=== PATIENT | male | born 1950 | race Two or more races ===

== ENCOUNTER 2023-10-14 17:59 | Emergency (ER) | payer BC, OTHER ==
[~2023-10-14] VITALS: Ht 167.6 cm; Wt 88.9 kg
[2023-10-14 18:57] VITALS: BP 123/70; PULSE 103; RESP 14; TEMP 98.9
[2023-10-14] MEDS ORDERED: ACE3T PO (21:42)
[2023-10-14] MEDS: ONDANSETRON ODT 4 MG TAB PO ONE (21:48)
[2023-10-14] MEDS: HYDROcodone-ACET 5/325MG TAB PO ONE (21:48)
[2023-10-14 21:55] VITALS: O2SAT 95
== END 2023-10-14 22:12 | disposition home or self-care (01) ==
LOC: ER 18:02
DX: S30.0XXA Contusion of lower back and pelvis, initial encounter (principal); E11.9 Type 2 diabetes mellitus without complications; E78.5 Hyperlipidemia, unspecified; I10 Essential (primary) hypertension; Z86.73 Personal history of transient ischemic attack (TIA), and cerebral infarction without residual deficits; W18.09XA Striking against other object with subsequent fall, initial encounter; Y93.89 Activity, other specified; Y92.89 Other specified places as the place of occurrence of the external cause; Y99.8 Other external cause status
CPT/HCPCS: 73502; 99283; Q0162

== ENCOUNTER 2025-02-14 13:40 | Inpatient (IN) | payer OTHER, MEDICAID ==
[~2025-02-14] VITALS: Ht 160 cm; Wt 91.0 kg
[~2025-02-14 13:40] MED LIST: ACE3T PO
--- NOTE | 2025-02-14 14:37 | ED.PDOC ---
HPI Comments 74 year old male presents to the ED with a chief complaint of chest pain onset 2 days. Patient [place] [employer] [facility] [place] when he began experiencing chest pain. Patient is a poor historian. PMHx CVA LT sided weakness. Denies shortness of breath, nausea, vomiting, diarrhea, headache, dizziness, fever, chills, cough, cold, congestion. No other symptoms or modifying factors present at this time. Chief Complaint: Chest Pain Time Seen by MD: 14:40 Primary Care Provider: UNKNOWN Reviewed Notes: Medications, Allergies Allergies: Coded Allergies: NO KNOWN ALLERGIES (Unverified , 10/14/23) Home Meds Active Scripts Acetaminophen W/ Codeine (Tylenol W/Cod #3) 1 Tab Tb, 1 TAB PO Q6HPRN, #10 TAB 0 Refills Prov:JALEN CASTELLANO 10/14/23 Information Source: Patient, Spouse Mode of Arrival: Wheelchair Severity: Moderate Duration: Since onset Prehospital treatment: None Onset: At Rest Cardiac Risk Factors: Hyperlipidemia, HTN, Diabetes PE Risk Factors: None History of: None Modifying Factors: Nothing Past Medical History PAST MEDICAL HISTORY: CVA, DM, High Lipids, HTN Surgical History: Denies all surgeries Family History Family History: Unknown Social History Smoker: Non-Smoker Alcohol: Denies ETOH Use Drugs: Denies Drug Use Lives In: Home Constitutional: denies: chills, diaphoresis, fatigue, fever, malaise, sweats, weakness, others EENTM: denies: blurred vision, double vision, ear bleeding, ear discharge, ear drainage, ear pain, ear ringing, eye pain, eye redness, hearing loss, mouth pain, mouth swelling, nasal discharge, nose bleeding, nose congestion, nose pain, photophobia, tearing, throat pain, throat swelling, voice changes, others Respiratory: denies: cough, hemoptysis, orthopnea, SOB at rest, shortness of breath, SOB with excertion, stridor, wheezing, others Cardiovascular: reports: chest pain; denies: dizzy spells, diaphoresis, Dyspnea on exertion, edema, irregular heart beat, left arm pain, lightheadedness, palpitations, PND, syncope, others Gastrointestinal: denies: abdomen distended, abdominal pain, blood streaked bowels, constipated, diarrhea, dysphagia, difficulty swallowing, hematemesis, melena, nausea, poor appetite, poor fluid intake, rectal bleeding, rectal pain, vomiting, others Genitourinary: denies: burning, dysuria, flank pain, frequency, hematuria, incontinence, penile discharge, penile sore, pain, testicle pain, testicle swelling, urgency, others Neurological: denies: dizziness, fainting, headache, left sided numbness, left sided weakness, numbness, paresthesia, pre-existing deficit, right sided numbness, right sided weakness, seizure, speech problems, tingling, tremors, weakness, others Musculoskeletal: denies: back pain, gout, joint pain, joint swelling, muscle pain, muscle stiffness, neck pain, others Integumetry: denies: bruises, change in color, change in hair/nails, dryness, laceration, lesions, lumps, rash, wounds, others Allergic/Immunocompromised: denies: Difficulty Healing, Frequent Infections, Hives, Itching, others Hematologic/Lymphatic: denies: anemia, blood clots, easy bleeding, easy bruising, swollen glands, others Endocrine: denies: excessive hunger, excessive sweating, excessive thirst, excessive urination, flushing, intolerance to cold, intolerance to heat, unexplained weight gain, unexplained weight loss, others Psychiatric: denies: anxiety, bipolar disorder, depression, hopeless, panic disorder, schizophrenia, sleepless, suicidal, others All Other Systems: Reviewed and Negative Physical Exam General Appearance: Normal HEENT: Normal ENT Inspection, Pharynx Normal, TMs Normal Neck: Full Range of Motion, Non-Tender, Normal, Normal Inspection Respiratory: Chest Non-Tender, Lungs Clear, No Accessory Muscle Use, No Respiratory Distress, Normal Breath Sounds Cardiovascular: No Edema, No JVD, No Murmur, No Gallop, Normal Peripheral Pulses, Regular Rate/Rhythm Breast Exam: Deferred Gastrointestinal: No Organomegaly, Non Tender, No Pulsatile Mass, Normal Bowel Sounds, Soft Genitalia: Deferred Pelvic: Deferred Rectal: Deferred Extremities: No calf tenderness, Normal capillary refill, Normal inspection, Normal range of motion, Non-tender, No pedal edema Musculoskeletal : Apperance: Normal Neurologic: Alert, 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 Was a procedure done?: No CP Differential Dx Differential Diagnosis: Hypoxia, MAT, CT Differential Diagnosis: HTN Essential, HTN Accelerated Differential Diagnosis: Gastritis, Myocardial Infarction X-Ray, Labs, Meds, VS Vital Signs Date Time Temp Pulse Resp B/P (MAP) Pulse Ox O2 Delivery O2 Flow Rate FiO2 02/14/25 16:46 79 02/14/25 15:51 88 18 94 Room Air 02/14/25 15:51 88 18 149/90 (109) 94 02/14/25 14:51 Room Air* 0 21 02/14/25 14:49 88 02/14/25 13:48 95 02/14/25 13:43 98.0 60 16 143/87 98 98.0 Lab Test 02/14/25 16:54 02/14/25 14:55 02/14/25 14:40 02/14/25 13:52 Range/Units Troponin I High Sensitivity 8 6 6 </=54 ng/L Urine Color Light-yellow Yellow Urine Clarity Clear Clear Urine pH 5.5 5.0-9.0 Urine Specific Julian 1.019 1.001-1.035 Urine Protein 1+ H Negative Urine Ketones Negative Negative Urine Blood Negative Negative /uL Urine Nitrite Negative Negative Urine Bilirubin Negative Negative Urine Urobilinogen Normal Negative mg/dL Urine Leukocyte Esterase Negative Negative /uL Urine RBC 1 0 - 3 /hpf Urine Microscopic WBC 1 0-3 /HPF Urine Squamous Epithelial Cells None seen <5 /hpf Urine Bacteria None seen None Seen /hpf Urine Glucose Normal Normal mg/dL White Blood Count 6.6 4.4-10.8 10^3/uL Red Blood Count 4.55 4.5-5.90 10^6/uL Hemoglobin 14.3 13.5-17.5 g/dL Hematocrit 41.2 41.0-53.0 % Mean Corpuscular Volume 90.7 80.0-100.0 fL Mean Corpuscular Hemoglobin 31.4 28.0-32.0 pg Mean Corpuscular Hemoglobin Concent 34.7 32.0-36.0 g/dL Red Cell Distribution Width 14.2 11.8-14.3 % Platelet Count 197 140-450 10^3/uL Mean Platelet Volume 9.3 6.9-10.8 fL Neutrophils (%) (Auto) 71.7 37.0-80.0 % Lymphocytes (%) (Auto) 16.5 10.0-50.0 % Monocytes (%) (Auto) 9.1 0.0-12.0 % Eosinophils (%) (Auto) 2.4 0.0-7.0 % Basophils (%) (Auto) 0.3 0.0-2.0 % Neutrophils # (Auto) 4.7 1.6-8.6 10 ^3/uL Lymphocytes # (Auto) 1.1 0.4-5.4 10 ^3/uL Monocytes # (Auto) 0.6 0-1.3 10 ^3/uL Eosinophils # (Auto) 0.2 0-0.8 10 ^3/uL Basophils # (Auto) 0 0-0.2 10 ^3/uL Nucleated Red Blood Cells 0.0 % Sodium Level 144 136-145 mmol/L Potassium Level 3.8 3.5-5.1 mmol/L Chloride Level 109 H 98-107 mmol/L Carbon Dioxide Level 19 L 20-31 mmol/L Anion Gap 16 H 5-15 Blood Urea Nitrogen 13 9-23 mg/dL Creatinine 1.36 H 0.700-1.30 mg/dL Glomerular Filtration Rate Calc 54 >90 mL/min BUN/Creatinine Ratio 9.6 L 10.0-20.0 Serum Glucose 74 74-106 mg/dL Calcium Level 9.2 8.7-10.4 mg/dL Time of 1ST Reevaluation: 15:10 Reevaluation 1ST: Unchanged Patient Education/Counseling: Diagnosis, Treatment, Prognosis Family Education/Counseling: Diagnosis, Treatment, Prognosis SEPSIS Sepsis Screen Date sepsis recognized/suspect: Feb 14, 2025 Time Sepsis recognized/suspect: 1343 Recent Procedure: No On Antibiotic Therapy: No Respiratory Rate >20: No Heart Rate >90: No Temp<36 C (96.8 F) or >38.3 C: No SBP <90 or MAP <65 mmHG: No New Acute Mental Status Change: No Is the patient on CPAP, BIPAP,: No Physician Orders Chest Portable (02/14/25 17:49) Head Without Contrast (02/14/25 17:49) Vital Signs Date Time Temp Pulse Resp B/P (MAP) Pulse Ox O2 Delivery O2 Flow Rate FiO2 02/14/25 16:46 79 02/14/25 15:51 88 18 94 Room Air 02/14/25 15:51 88 18 149/90 (109) 94 02/14/25 14:51 Room Air* 0 21 02/14/25 14:49 88 02/14/25 13:48 95 02/14/25 13:43 98.0 60 16 143/87 98 98.0 Laboratory Tests Test 02/14/25 13:52 White Blood Count 6.6 10^3/uL (4.4-10.8) Departure 1 Departure Time of Disposition: 18:31 Impression: Primary Impression: Acute metabolic encephalopathy Additional Impressions: Blindness CVA (cerebral vascular accident) Disposition: ADMITTED INPATIENT Admit to: Tele Condition: Serious Critical Care Note Critical Care Time?: Yes Critical care comment: Concern for CVA Authorized and Performed by: Rinku Case MD Total critical care time: Approximately 41 minutes Due to a high probability of clinically significant, life threatening deterioration, the patient required my highest level of preparedness to intervene emergently and I personally spent this critical care time directly and personally managing the patient. This critical care time included obtaining a history; examining the patient; pulse oximetry; ordering and review of studies; arranging urgent treatment with development of a management plan; evaluation of patient's response to treatment; frequent reassessment; and, discussions with other providers. This critical care time was performed to assess and manage the high probability of imminent, life-threatening deterioration that could result in multi-organ failure. It was exclusive of separately billable procedures and treating other patients and teaching time. Please see my other sections and the rest of the note for further information on patient assessment and treatment. Stability Stability form required: No Heart Score Heart Score: Heart Score Response (Comments) Value History Moderate Suspicious 1 EKG Repolarization Disturb 1 Age >65 2 Risk Factors >3 or Hx ASHD 2 Troponin 1-2 x's Normal limit 1 Total 7 I personally scribed for RINKU CASE MD ([email or web address]) on 02/14/25 at 14:37. Electronically submitted by Nay Jerry ([email or web address]). I personally scribed for RINKU CASE MD ([email or web address]) on 02/14/25 at 14:58. Electronically submitted by Nay Jerry ([email or web address]). RINKU CASE MD Feb 14, 2025 14:37
--- NOTE | 2025-02-14 14:39 | ECG ---
[facility] Test Date: 2025-02-14 Test Time: 13:48:23 Pat Name: PHIL JOHNSON Department: ED Room: 0202T Gender: M Process Chemist: : 1950 Requested By: JASMIN RENDON Order Number: [id number] Reading MD: Dejuan Watson Measurements Intervals [place] Rate: 95 P: -4 [place]: 208 QRS: -8 QRSD: 147 T: 18 QT: 384 QTc: 483 Interpretive Statements Sinus rhythm Right bundle branch block Electronically Signed On 02-18-2025 20:29:11 PDT by Dejuan Watson Please click the below link to view image of tracing.
--- NOTE | 2025-02-14 14:50 | ECG ---
[facility] Test Date: 2025-02-14 Test Time: 14:49:34 Pat Name: PHIL JOHNSON Department: ED Room: 0202T Gender: M Meat Cutter: GP : 1950 Requested By: JASMIN RENDON Order Number: [id number] Reading MD: Dejuan Watson Measurements Intervals [place] Rate: 88 P: 10 [place]: 240 QRS: -21 QRSD: 151 T: 16 QT: 398 QTc: 482 Interpretive Statements Sinus rhythm Prolonged [place] interval Right bundle branch block Baseline wander in lead(s) I,V4 Electronically Signed On 02-18-2025 20:29:21 PDT by Dejuan Watson Please click the below link to view image of tracing.
[2025-02-14 15:52] LABS: Urine Protein, UAD 1+ (Negative)
--- NOTE | 2025-02-14 16:48 | ECG ---
[facility] Test Date: 2025-02-14 Test Time: 16:46:49 Pat Name: PHIL JOHNSON Department: [facility] ED Patient ID: [id number] Room: 0202T Gender: M Documentation Billing Clerk: gp : 1950 Requested By: JASMIN RENDON Order Number: [id number] Reading MD: Dejuan Watson Measurements Intervals [place] Rate: 79 P: 29 [place]: 232 QRS: -1 QRSD: 157 T: 22 QT: 404 QTc: 464 Interpretive Statements Sinus rhythm Prolonged [place] interval Right bundle branch block Baseline wander in lead(s) III,V6 Electronically Signed On 02-18-2025 20:29:25 PDT by Dejuan Watson Please click the below link to view image of tracing.
[2025-02-14 18:07] LABS: Hematocrit 41.2 % (41.0-53.0); Hemoglobin 14.3 g/dL (13.5-17.5); Mean Corpuscular Hemoglobin 31.4 pg (28.0-32.0); Mean Corpuscular Volume 90.7 fL (80.0-100.0); Nucleated Red Blood Cells % 0.0 %
[2025-02-14 18:08] LABS: Potassium 3.8 mmol/L (3.5-5.1); Sodium 144 mmol/L (136-145)
[2025-02-14 18:09] LABS: Anion Gap 16 (5-15)
[2025-02-14 18:10] LABS: Calcium 9.2 mg/dL (8.7-10.4)
[2025-02-14 18:11] LABS: Carbon Dioxide 19 mmol/L (20-31); Chloride 109 mmol/L (98-107)
[2025-02-14 18:14] LABS: BUN/Creatinine Ratio 9.6 (10.0-20.0); Blood Urea Nitrogen 13 mg/dL (9-23); Glucose 74 mg/dL (74-106)
--- NOTE | 2025-02-14 18:17 | DVH ---
CLINICAL HISTORY: ams TECHNIQUE: Single view of the chest was obtained. COMPARISON: None FINDINGS: The heart size is borderline enlarged and the pulmonary vasculature appears normal. The lungs are olga ar. There has been right shoulder surgery. IMPRESSION: NO ACUTE CARDIOPULMONARY PROCESS.
--- NOTE | 2025-02-14 18:30 | DVH ---
EXAM: CT HEAD WITHOUT CONTRAST INDICATION: ams TECHNIQUE: CT of the head without intravenous contrast. Radiation Dose Information: CT Dose: CTDI volume is 56.79 mGy. Dose-length product is 908.71 mGy*cm The dose indicators for CT are the volume Computed Tomography (CT) Dose Index (CTDIvol) and the Dose Length Product (DLP), and are measured in units of mGy and mGy-cm, respectively. These indicators are not patient dose, but values generated from the CT scanner acquisition factors. The report includes radiation exposure data for exposures received during this examination. COMPARISON: None FINDINGS: There is no evidence of acute intracranial hemorrhage, extra-axial collection, mass effect, midline s hift, herniation or hydrocephalus. The ventricles, sulci and cisterns are age appropriate. The larkin-white differentiation is intact apart from remote infarcts in the left frontal parietal and left occipital regions. Patchy periventricular and subcortical white matter hypoattenuation is nonspecific but may be related to small vessel ischemic disease. The visualized paranasal sinuses and mastoid air cells are clear. The surrounding soft tissues and osseous structures are unremarkable. IMPRESSION: No acute intracranial abnormality.
[2025-02-14] MEDS ORDERED: ONDANSETRON HCL 4 MG/2 ML VIAL IV PRN (19:45)
[2025-02-14] MEDS ORDERED: DEXTROSE (50%) 50ML SYRG IV PRN (19:45)
[2025-02-14] MEDS ORDERED: NITROGLYCERIN 0.4 MG SL TAB SL PRN (19:45)
[2025-02-14] MEDS ORDERED: ACETAMINOPHEN 325 MG TAB PO PRN (19:45)
[2025-02-14] MEDS ORDERED: MORPHINE SULFATE INJ 2 MG/ml SYRG IV PRN (19:45)
[2025-02-14] MEDS: hydrALAZINE HCL 20 MG/ML VL IV ONE (21:16)
[2025-02-14 22:10] VITALS: BP 175/86; PULSE 82; RESP 19; TEMP 97.6; O2SAT 96
[2025-02-14] MEDS: ACCU-CHEK COMFORT CURVE STRIP VI SCH (22:18)
[2025-02-14 22:21] VITALS: PULSE 80; RESP 17; O2SAT 95
[2025-02-14] MEDS: ATORVASTATIN 20 MG TAB PO SCH (22:29)
[2025-02-14] MEDS: METOPROLOL TARTRATE 25 MG TAB PO SCH (22:29)
[2025-02-14] MEDS: APIXABAN 5 MG TAB PO SCH (22:30)
[2025-02-14] MEDS: InsuLIN REG 1unit/0.01ml Soln (100units/ml) SC SCH (22:32)
--- NOTE | 2025-02-14 22:41 | DVHHP2 ---
History of Present Illness Reason for Visit: Chest pain History of Present Illness 74-year-old male presents for evaluation of chest pain. Patient reports a two day history of intermittent left-sided chest pain. Patient also reports having visual disturbances over the past one day. Denies headache. Patient does have left-sided deficits and speech deficits from a previous stroke. Past Medical History Dyslipidemia, hypertension, diabetes mellitus, CVA Past Surgical History Denies Family History Noncontributory Smoke: No ALCOHOL: none Drugs: None Lives: with Family Review of Systems Review of Systems Review of systems are currently negative otherwise addressed in HPI. Allergies: Coded Allergies: NO KNOWN ALLERGIES (Unverified , 10/14/23) Medications Current Medications Medications Dose Ordered Sig/Tyson Route Start Time Stop Time Status Last Admin Dose Admin Metoprolol Tartrate 25 mg BID PO 02/14/25 22:00 02/14/25 22:29 25 MG Apixaban 5 mg BID PO 02/14/25 22:00 02/14/25 22:30 5 MG Atorvastatin Calcium 80 mg HS PO 02/14/25 22:00 02/14/25 22:29 80 MG Diagnostic Test (Pha) 1 strip ACHS 02/14/25 22:00 02/14/25 22:18 1 STRIP Insulin Human Regular ACHS SC 02/14/25 22:00 02/14/25 22:32 2 UNITS Dextrose 50 ml UD PRN IV 02/14/25 19:45 Ondansetron HCl 4 mg Q4HP PRN IV 02/14/25 19:45 Enoxaparin Sodium 40 mg DAILY SC 02/15/25 10:00 Acetaminophen 650 mg Q6HP PRN PO 02/14/25 19:45 Nitroglycerin 0.4 mg Q5MINP PRN SL 02/14/25 19:45 Morphine Sulfate 2 mg Q30M PRN IV 02/14/25 19:45 Hydralazine HCl 10 mg Q6HP PRN IV 02/14/25 22:30 UNV Exam Vital Signs Vital Signs Date Time Temp Pulse Resp B/P (MAP) Pulse Ox O2 Delivery O2 Flow Rate FiO2 02/14/25 22:29 82 175/86 02/14/25 21:39 16 96 02/14/25 20:04 98.3 98.3 02/14/25 15:51 Room Air 10/7/25 14:51 0 21 Exam Gen: 74-year-old male in mild distress Skin: Warm, dry, normal color and texture, no rash. HEENT: Normocephalic atraumatic, mucous membranes moist and pink. Neck: Cervical and supraclavicular nodes normal without enlargement, trachea is midline, thyroid gland is normal without masses. Pulmonary: Clear to auscultation and percussion bilaterally. Cardiac: Regular rate and rhythm. No murmur Abdomen: Soft, nontender, nondistended, bowel sounds present all 4 quadrants, no guarding, no rigidity, no organomegaly. Extremities: No cyanosis, clubbing, no edema Neuro: Cranial nerves II through XII grossly intact, normal affect and speech, no focal motor deficits. Labs/Xrays ORDERING PHYSICIAN: JASMIN RENDON MD PROCEDURE(s): CXRP - CHEST PORTABLE REASON: [facility] ORDER NUMBER(s): [id number], ACCESSION NUMBER(s): [id number] CLINICAL HISTORY: ams TECHNIQUE: Single view of the chest was obtained. COMPARISON: None FINDINGS: The heart size is borderline enlarged and the pulmonary vasculature appears no rmal. The lungs are clear. There has been right shoulder surgery. IMPRESSION: NO ACUTE CARDIOPULMONARY PROCESS. RING PHYSICIAN: JASMIN RENDON MD PROCEDURE(s): HWOCT - HEAD WITHOUT CONTRAST REASON: [facility] ORDER NUMBER(s): [id number], ACCESSION NUMBER(s): [id number] EXAM: CT HEAD WITHOUT CONTRAST INDICATION: ams TECHNIQUE: CT of the head without intravenous contrast. Radiation Dose Information: CT Dose: CTDI volume is 56.79 mGy. Dose-length product is 908.71 mGy*cm The dose indicators for CT are the volume Computed Tomography (CT) Dose Index (CTDIvol) and the Dose Length Product (DLP), and are measured in units of mGy and mGy-cm, respectively. These indicators are not patient dose, but values generated from the CT scanner acquisition factors. The report includes radiation exposure data for exposures received during this examination. COMPARISON: None FINDINGS: There is no evidence of acute intracranial hemorrhage, extra-axial collection, mass effect, midline shift, herniation or hydrocephalus. The ventricles, sulci and cisterns are age appropriate. The larkin-white differentiation is intact apart from remote infarcts in the left frontal parietal and left occipital regions. Patchy periventricular and subcortical white matter hypoattenuation is no nspecific but may be related to small vessel ischemic disease. The visualized paranasal sinuses and mastoid air cells are clear. The surrounding soft tissues and osseous structures are unremarkable. IMPRESSION: No acute intracranial abnormality. Labs Test 02/14/25 22:09 02/14/25 16:54 02/14/25 14:40 02/14/25 13:52 Range/Units POC Glucose 148 H 70-106 mg/dl Troponin I High Sensitivity 8 </=54 ng/L Urine Color Light-yellow Yellow Urine Clarity Clear Clear Urine pH 5.5 5.0-9.0 Urine Specific [place] 1.019 1.001-1.035 Urine Protein 1+ H Negative Urine Ketones Negative Negative Urine Blood Negative Negative /uL Urine Nitrite Negative Negative Urine Bilirubin Negative Negative Urine Urobilinogen Normal Negative mg/dL Urine Leukocyte Esterase Negative Negative /uL Urine RBC 1 0 - 3 /hpf Urine Microscopic WBC 1 0-3 /HPF Urine Squamous Epithelial Cells None seen <5 /hpf Urine Bacteria None seen None Seen /hpf Urine Glucose Normal Normal mg/dL White Blood Count 6.6 4.4-10.8 10^3/uL Red Blood Count 4.55 4.5-5.90 10^6/uL Hemoglobin 14.3 13.5-17.5 g/dL Hematocrit 41.2 41.0-53.0 % Mean Corpuscular Volume 90.7 80.0-100.0 fL Mean Corpuscular Hemoglobin 31.4 28.0-32.0 pg Mean Corpuscular Hemoglobin Concent 34.7 32.0-36.0 g/dL Red Cell Distribution Width 14.2 11.8-14.3 % Platelet Count 197 140-450 10^3/uL Mean Platelet Volume 9.3 6.9-10.8 fL Neutrophils (%) (Auto) 71.7 37.0-80.0 % Lymphocytes (%) (Auto) 16.5 10.0-50.0 % Monocytes (%) (Auto) 9.1 0.0-12.0 % Eosinophils (%) (Auto) 2.4 0.0-7.0 % Basophils (%) (Auto) 0.3 0.0-2.0 % Neutrophils # (Auto) 4.7 1.6-8.6 10 ^3/uL Lymphocytes # (Auto) 1.1 0.4-5.4 10 ^3/uL Monocytes # (Auto) 0.6 0-1.3 10 ^3/uL Eosinophils # (Auto) 0.2 0-0.8 10 ^3/uL Basophils # (Auto) 0 0-0.2 10 ^3/uL Nucleated Red Blood Cells 0.0 % Sodium Level 144 136-145 mmol/L Potassium Level 3.8 3.5-5.1 mmol/L Chloride Level 109 H 98-107 mmol/L Carbon Dioxide Level 19 L 20-31 mmol/L Anion Gap 16 H 5-15 Blood Urea Nitrogen 13 9-23 mg/dL Creatinine 1.36 H 0.700-1.30 mg/dL Glomerular Filtration Rate Calc 54 >90 mL/min BUN/Creatinine Ratio 9.6 L 10.0-20.0 Serum Glucose 74 74-106 mg/dL Calcium Level 9.2 8.7-10.4 mg/dL SEPSIS Sepsis Screen Date sepsis recognized/suspect: Feb 14, 2025 Time Sepsis recognized/suspect: 1452 Recent Procedure: No On Antibiotic Therapy: No Respiratory Rate >20: No Heart Rate >90: No Temp<36 C (96.8 F) or >38.3 C: No SBP <90 or MAP <65 mmHG: No New Acute Mental Status Change: No Is the patient on CPAP, BIPAP,: No Physician Orders Chest Portable (02/14/25 17:49) Head Without Contrast (02/14/25 17:49) Consistent Carb(Ccho)Diabetes (02/15/25 Breakfast) Metoprolol Tartrate Tablet (Lopressor Ta (02/14/25 22:00) Apixaban (Eliquis) (02/14/25 22:00) Atorvastatin (Lipitor) (02/14/25 22:00) Basic Metabolic Panel (02/15/25 04:00) Glucose Blood (Accu-Chek Comfort Curve T (02/14/25 22:00) Insulin R (Human) (Insulin R) (02/14/25 22:00) Dextrose 50% Syringe (02/14/25 19:45) Admit (02/14/25 19:40) Ondansetron Hcl (Zofran) (02/14/25 19:45) Echo 2d Mode Cardiac Dop (02/14/25 19:40) Condition: Fair (02/14/25 19:40) Acetaminophen Tablet (Tylenol Tablet) (02/14/25 19:45) Bedrest With Bathroom Privileg (02/14/25 19:40) Nitroglycerin Sublingual (Ntrostat Subli (02/14/25 19:45) Morphine Sulfate Injection (02/14/25 19:45) Stat Ekg For Chest Pain (02/14/25 19:40) Notify Md Of Changes From Base (02/14/25 19:40) Assembler 1St Shift For 24 Hours (02/14/25 19:40) Emergency Dysrhythmia Protocol (02/14/25 19:40) Rhythm Strips Once Every Shift (02/14/25 19:40) Oxygen By Nasal Cannula (02/14/25 19:40) Enoxaparin Sodium (Lovenox) (02/15/25 10:00) Hydralazine Injection (Apresoline Inject (02/14/25 22:30) Brain Head Wo Contrast (02/14/25 22:37) Vital Signs Date Time Temp Pulse Resp B/P (MAP) Pulse Ox O2 Delivery O2 Flow Rate FiO2 02/14/25 22:29 82 175/86 02/14/25 21:39 80 16 171/76 (107) 96 02/14/25 21:16 187/104 02/14/25 20:04 98.3 90 93 167/101 (123) 96 98.3 02/14/25 16:46 79 02/14/25 15:51 88 18 94 Room Air 02/14/25 15:51 88 18 149/90 (109) 94 02/14/25 14:51 Room Air* 0 21 02/14/25 14:49 88 Laboratory Tests Test 02/14/25 13:52 White Blood Count 6.6 10^3/uL (4.4-10.8) Medications Medications Dose Ordered Sig/Tyson Route Start Time Stop Time Status Last Admin Dose Admin Apixaban 5 mg BID PO 02/14/25 22:00 02/14/25 22:30 5 MG Atorvastatin Calcium 80 mg HS PO 02/14/25 22:00 02/14/25 22:29 80 MG Diagnostic Test (Pha) 1 strip ACHS 02/14/25 22:00 02/14/25 22:18 1 STRIP Hydralazine HCl 10 mg ONCE ONCE IV 02/14/25 21:15 02/14/25 21:16 DC 02/14/25 21:16 10 MG Insulin Human Regular ACHS SC 02/14/25 22:00 02/14/25 22:32 2 UNITS Metoprolol Tartrate 25 mg BID PO 02/14/25 22:00 02/14/25 22:29 25 MG Assessment/Plan Assessment/Plan Assessment Chest pain rule out ACS Hypertension History of CVA with left-sided deficits Diabetes mellitus Acute kidney injury Plan Admit the patient to telemetry to the hospitalist ACS protocol Echocardiogram pending Resume home medications MRI of the brain pending Continue treatment per orders. Plan discussed with: Patient My Orders Orders - CLAUDE STAPLETON Procedure Category Date Status Time Consistent DIET 02/15/25 Transmitted Carb(Ccho)Diabetes Breakfast Metoprolol Tartrate PHA 02/14/25 In Process Tablet (Lopressor Ta 22:00 Apixaban (Eliquis) PHA 02/14/25 In Process 22:00 Atorvastatin (Lipitor) PHA 02/14/25 In Process 22:00 Basic Metabolic Panel LAB 02/15/25 Verified 04:00 Glucose Blood PHA 02/14/25 In Process (Accu-Chek Comfort 22:00 Insulin R (Human) PHA 02/14/25 In Process (Insulin R) 22:00 Dextrose 50% Syringe PHA 02/14/25 In Process 19:45 Admit ADMIT 02/14/25 Transmitted 19:40 Ondansetron Hcl PHA 02/14/25 In Process (Zofran) 19:45 Echo 2d Mode Cardiac US 02/14/25 Logged DOP 19:40 Condition: Fair JUAN 02/14/25 In Process 19:40 Acetaminophen Tablet PHA 02/14/25 In Process (Tylenol Tablet) 19:45 Bedrest With Bathroom JUAN 02/14/25 In Process Privileg 19:40 Nitroglycerin PHA 02/14/25 In Process Sublingual (Ntrostat 19:45 Morphine Sulfate PHA 02/14/25 In Process Injection 19:45 Stat Ekg For Chest [facility] 02/14/25 In Process Pain 19:40 Notify Md Of Changes [facility] 02/14/25 In Process From Base 19:40 Assembler 1St Shift For [facility] 02/14/25 In Process 24 Hours 19:40 Emergency Dysrhythmia [facility] 02/14/25 In Process Protocol 19:40 Rhythm Strips Once [facility] 02/14/25 In Process Every Shift 19:40 Oxygen By Nasal RT 02/14/25 Transmitted Cannula 19:40 Enoxaparin Sodium [facility] 02/15/25 In Process (Lovenox) 10:00 Hydralazine Injection [facility] 02/14/25 Logged (Apresoline Inject 22:30 Brain Head Wo Contrast MRI 02/14/25 Verified 22:37 Date of Service: Feb 14, 2025 Billing Provider: CLAUDE STAPLETON Common Visit Codes: [id number] INP/OBS CARE (HIGH) CLAUDE STAPLETON Feb 14, 2025 22:41
[2025-02-15] VITALS (9 sets, daily range): BP systolic 125–172; BP diastolic 82–98; PULSE 73–93; RESP 15–18; TEMP 98.2–99; O2SAT 91–98
[2025-02-15] MEDS: hydrALAZINE HCL 20 MG/ML VL IV PRN (01:11)
[2025-02-15 07:14] LABS: Chloride 104 mmol/L (98-107); Potassium 3.5 mmol/L (3.5-5.1); Sodium 141 mmol/L (136-145)
[2025-02-15 07:15] LABS: Anion Gap 13 (5-15); Carbon Dioxide 24 mmol/L (20-31)
[2025-02-15 07:16] LABS: Calcium 9.4 mg/dL (8.7-10.4)
[2025-02-15 07:21] LABS: BUN/Creatinine Ratio 13.0 (10.0-20.0); Blood Urea Nitrogen 17 mg/dL (9-23)
[2025-02-15 07:23] LABS: Glucose 161 mg/dL (74-106)
--- NOTE | 2025-02-15 09:34 | DVH ---
PROCEDURE: MRI BRAIN HEAD WO CONTRAST INDICATION: Dizziness, visual disturbance EXAM DATE: 02/15/2025 08:31 AM COMPARISON: CT HEAD WITHOUT CONTRAST on DOS: 02/14/25 TECHNIQUE: MRI of the brain without intravenous contrast. FINDINGS: Tiny acute lacunar infarct within the left central midrain along the margin of the cerebral aqueduct. There is no evidence of acute intracranial hemorrhage, extra-axial collection, mass effect, midline s hift, herniation or hydrocephalus. The ventricles, sulci and cisterns appear age appropriate. Remote infract within the left occipital lobe. Remote cortical infarct in the left frontal parietal r egion . Moderate generalized cerebral volume loss with scattered and more confluent areas of increase d T2/FLAIR signal in the subcortical, deep, and paraventricular white matter of both cerebral hemisp heres compatible with moderate chronic small vessel ischemia. Few small scattered foci remote microhemorrhage throughout both cerebral hemispheres and the left cer ebellar hemisphere. The major vascular flow voids are present. The visualized paranasal sinuses and mastoid air cells are clear. The surrounding soft tissues and o sseous structures are unremarkable. IMPRESSION: Tiny acute lacunar infarct within the left central midbrain.
[2025-02-15] MEDS ORDERED: ENOXAPARIN SOD 40 MG/0.4 ML SYRINGE SC SCH (10:00)
--- NOTE | 2025-02-15 10:11 | DVHPN2 ---
Subjective 74-year-old male was admitted for altered level of consciousness and weakness and left-sided chest pain He says he had 4 strokes before and he was afraid that he is having another one He is taking Eliquis at home but he has not been taking it looked like he should Family thinks he is taking it because he had atrial fibrillation before Changes from previous H/P or p: Changes Objective Vitals Vital Signs Date Time Temp Pulse Resp B/P (MAP) Pulse Ox O2 Delivery O2 Flow Rate FiO2 02/15/25 09:20 93 125/84 02/15/25 05:00 98.2 15 98 98.2 02/14/25 22:21 Room Air* 0 21 Intake/Output Intake and Output 02/15/25 06:59 Intake Total 0 ml Balance 0 ml Intake Oral 0 ml General Appearance: Alert, Oriented X3, Cooperative, No acute distress Cardiovascular: Regular rate, Normal S1, Normal S2 Abdomen: Normal bowel sounds, Soft, No tenderness Extremities: No edema Medications Current Medications Medications Dose Ordered Sig/Tyson Route Start Time Stop Time Status Last Admin Dose Admin Metoprolol Tartrate 25 mg BID PO 02/14/25 22:00 02/15/25 09:20 25 MG Apixaban 5 mg BID PO 02/14/25 22:00 02/15/25 09:25 5 MG Atorvastatin Calcium 80 mg HS PO 02/14/25 22:00 02/14/25 22:29 80 MG Diagnostic Test (Pha) 1 strip ACHS 02/14/25 22:00 02/15/25 06:08 1 STRIP Insulin Human Regular ACHS SC 02/14/25 22:00 02/15/25 06:08 3 UNITS Dextrose 50 ml UD PRN IV 02/14/25 19:45 Ondansetron HCl 4 mg Q4HP PRN IV 02/14/25 19:45 Acetaminophen 650 mg Q6HP PRN PO 02/14/25 19:45 Nitroglycerin 0.4 mg Q5MINP PRN SL 02/14/25 19:45 Morphine Sulfate 2 mg Q30M PRN IV 02/14/25 19:45 Hydralazine HCl 10 mg Q6HP PRN IV 02/14/25 22:30 02/15/25 01:11 10 MG Laboratory Results Laboratory Tests 02/14/25 13:52 02/15/25 06:34 Chemistry Test 02/14/25 13:52 02/15/25 06:34 Calcium Level 9.2 mg/dL (8.7-10.4) 9.4 mg/dL (8.7-10.4) Urinalysis Test 02/14/25 14:40 Urine Color Light-yellow (Yellow) Urine Clarity Clear (Clear) Urine pH 5.5 (5.0-9.0) Urine Specific [place] 1.019 (1.001-1.035) Urine Protein 1+ (Negative) H Urine Ketones Negative (Negative) Urine Blood Negative /uL (Negative) Urine Nitrite Negative (Negative) Urine Bilirubin Negative (Negative) Urine Urobilinogen Normal mg/dL (Negative) Urine Leukocyte Esterase Negative /uL (Negative) Urine RBC 1 /hpf (0 - 3) Urine Microscopic WBC 1 /HPF (0-3) Urine Squamous Epithelial Cells None seen /hpf (<5) Urine Bacteria None seen /hpf (None Seen) Urine Glucose Normal mg/dL (Normal) Assessment/Plan Assessment/Plan Altered level of consciousness Left-sided chest pain Dyslipidemia Hypertension Type 2 diabetes Acute recurrent CVA Old CVA Noncompliant with Eliquis Plan MRI of the brain shows tiny acute lacunar infarct within the left central midbrain The patient is on Eliquis at home, however not compliant completely with taking it Discontinue Lovenox Continue Eliquis 5 mg twice a day Get an echocardiogram Carotid Doppler Neurology consult Physical therapy evaluation Lipitor Monitor closely Plan discussed with: Patient Date of Service: Feb 15, 2025 Billing Provider: MERA HAMILTON MD Common Visit Codes: NOT BILLABLE MERA HAMILTON MD Feb 15, 2025 10:11
[2025-02-16 01:00] VITALS: BP 146/84; PULSE 83; RESP 19; TEMP 98; O2SAT 90
[2025-02-16 05:00] VITALS: BP 147/85; PULSE 79; RESP 19; TEMP 98.2; O2SAT 99
[2025-02-16 05:31] LABS: Hematocrit 41.4 % (41.0-53.0); Hemoglobin 14.5 g/dL (13.5-17.5); Mean Corpuscular Hemoglobin 31.4 pg (28.0-32.0); Mean Corpuscular Volume 89.8 fL (80.0-100.0); Nucleated Red Blood Cells % 0.0 %
[2025-02-16 06:05] LABS: Alanine Aminotransferase 12 U/L (7-40); Albumin 4.0 g/dL (3.2-4.8); Alkaline Phosphatase 102 U/L (46-116); Anion Gap 11 (5-15); BUN/Creatinine Ratio 13.4 (10.0-20.0); Bilirubin, Total 1.0 mg/dL (0.2-1.0); Blood Urea Nitrogen 18 mg/dL (9-23); Calcium 9.1 mg/dL (8.7-10.4); Carbon Dioxide 25 mmol/L (20-31); Chloride 104 mmol/L (98-107); Cholesterol 117 mg/dL (< 200); Magnesium 1.6 mg/dL (1.6-2.6); Sodium 140 mmol/L (136-145); Total Protein 7.4 g/dL (5.7-8.2); Triglycerides 111 mg/dL (< 150)
[2025-02-16 06:21] LABS: Glucose 140 mg/dL (74-106); HDL Cholesterol 32 mg/dL (40-59); Potassium 3.4 mmol/L (3.5-5.1)
[2025-02-16 08:12] VITALS: PULSE 84
[2025-02-16 09:00] VITALS: BP 150/88; PULSE 84; RESP 18; TEMP 98.2; O2SAT 94
--- NOTE | 2025-02-16 12:30 | DVHDS2 ---
Discharge Summary Date of Admission Feb 14, 2025 at 19:40 Date of Discharge: Feb 16, 2025 Labs/Diagnostic Data: Laboratory Results Test 02/16/25 11:04 02/16/25 04:38 02/14/25 16:54 02/14/25 14:40 POC Glucose 167 mg/dl (70-106) White Blood Count 6.9 10^3/uL (4.4-10.8) Red Blood Count 4.61 10^6/uL (4.5-5.90) Hemoglobin 14.5 g/dL (13.5-17.5) Hematocrit 41.4 % (41.0-53.0) Mean Corpuscular Volume 89.8 fL (80.0-100.0) Mean Corpuscular Hemoglobin 31.4 pg (28.0-32.0) Mean Corpuscular Hemoglobin Concent 35.0 g/dL (32.0-36.0) Red Cell Distribution Width 14.2 % (11.8-14.3) Platelet Count 200 10^3/uL (140-450) Mean Platelet Volume 8.7 fL (6.9-10.8) Neutrophils (%) (Auto) 60.7 % (37.0-80.0) Lymphocytes (%) (Auto) 23.2 % (10.0-50.0) Monocytes (%) (Auto) 11.9 % (0.0-12.0) Eosinophils (%) (Auto) 4.0 % (0.0-7.0) Basophils (%) (Auto) 0.2 % (0.0-2.0) Neutrophils # (Auto) 4.2 10 ^3/uL (1.6-8.6) Lymphocytes # (Auto) 1.6 10 ^3/uL (0.4-5.4) Monocytes # (Auto) 0.8 10 ^3/uL (0-1.3) Eosinophils # (Auto) 0.3 10 ^3/uL (0-0.8) Basophils # (Auto) 0 10 ^3/uL (0-0.2) Nucleated Red Blood Cells 0.0 % Sodium Level 140 mmol/L (136-145) Potassium Level 3.4 mmol/L (3.5-5.1) Chloride Level 104 mmol/L (98-107) Carbon Dioxide Level 25 mmol/L (20-31) Anion Gap 11 (5-15) Blood Urea Nitrogen 18 mg/dL (9-23) Creatinine 1.34 mg/dL (0.700-1.30) Glomerular Filtration Rate Calc 55 mL/min (>90) BUN/Creatinine Ratio 13.4 (10.0-20.0) Serum Glucose 140 mg/dL (74-106) Calcium Level 9.1 mg/dL (8.7-10.4) Magnesium Level 1.6 mg/dL (1.6-2.6) Total Bilirubin 1.0 mg/dL (0.2-1.0) Aspartate Amino Transferase (AST) 22 U/L (13-40) Alanine Aminotransferase (ALT) 12 U/L (7-40) Alkaline Phosphatase 102 U/L (46-116) Total Protein 7.4 g/dL (5.7-8.2) Albumin 4.0 g/dL (3.2-4.8) Triglycerides Level 111 mg/dL (< 150) Cholesterol Level 117 mg/dL (< 200) LDL Cholesterol 70 mg/dL (< 100) HDL Cholesterol 32 mg/dL (40-59) Troponin I High Sensitivity 8 ng/L (</=54) Urine Color Light-yellow (Yellow) Urine Clarity Clear (Clear) Urine pH 5.5 (5.0-9.0) Urine Specific [place] 1.019 (1.001-1.035) Urine Protein 1+ (Negative) Urine Ketones Negative (Negative) Urine Blood Negative /uL (Negative) Urine Nitrite Negative (Negative) Urine Bilirubin Negative (Negative) Urine Urobilinogen Normal mg/dL (Negative) Urine Leukocyte Esterase Negative /uL (Negative) Urine RBC 1 /hpf (0 - 3) Urine Microscopic WBC 1 /HPF (0-3) Urine Squamous Epithelial Cells None seen /hpf (<5) Urine Bacteria None seen /hpf (None Seen) Urine Glucose Normal mg/dL (Normal) Other Laboratory Tests 02/16/25 04:38 Brief Hx & Hospital Course: Final diagnoses: Altered level of consciousness Left-sided chest pain Dyslipidemia Hypertension Type 2 diabetes Acute recurrent CVA Old CVA Noncompliant with Eliquis 74-year-old male with a recurrent CVA is who also takes Eliquis but he has not been taking it regularly came with chief complaint of altered level of consciousness and chest pain [place] was ruled out Initial CT scan of the head was negative however an MRI showed tiny acute lacunar infarct within the left central midbrain The patient overall is doing okay, not symptomatic except for some chronic old slurred speech and generalized weakness Vital signs shows mildly elevated blood pressure Overall the patient did well overnight He was educated about the importance of taking his Eliquis He said he takes it once in a while but now he understands that he needs to take it regularly Discharged home on the same home medications Eliquis 5 mg twice a day Follow up with his PCP as soon as possible Condition at Discharge: Stable Final Diagnosis/Problems List Altered level of consciousness Left-sided chest pain Dyslipidemia Hypertension Type 2 diabetes Acute recurrent CVA Old CVA Noncompliant with Eliquis Discharge Disposition: Home SNF Discharge Will this Physician continue t: No Discharge Instruct/Medications Scheduled Acetaminophen W/ Codeine (Tylenol W/Cod #3), 1 TAB PO Q6HPRN Discharge Statement: "Patient was advised to return to the ER or call 911 if any headaches, dizziness, shortness of breath, chest pain, abdominal pain, bleeding, fevers, or worsening of medical condition. Patient was counseled about treatment plan, medications, possible side effects, patientverbalized understanding. All questions were answered to the best of my ability. This discharge took greater then 30 minutes in planning, reviewing documentation, counseling the patient, and discussing with other team members." ASSESSMENT ASSESSMENT Assessment Date of Service: Feb 16, 2025 Billing Provider: MERA HAMILTON MD Common Visit Codes: NOT BILLABLE MERA HAMILTON MD Feb 16, 2025 12:30
[2025-02-16] MEDS ORDERED: APIX5TAB PO (12:32)
[2025-02-16 13:16] VITALS: BP 142/79; PULSE 82; TEMP 36.8
--- NOTE | 2025-02-17 17:11 | DVHSR ---
APPROVED REPORT EXAM: Two-dimensional and M-mode echocardiogram with Doppler and color Doppler. Blood Pressure: 141/90 mmHg INDICATION Chest Pain RISK FACTORS Obesity: Height: 5'3", Weight: 177 DIMENSIONS LVDd (3.8-5.7cm)LA (2D)3.7 (1.9-4.0cm)Aortic Root4.1 (2.0-3.7cm) LVDs (2.5-4.0cm)LA (MM) (1.9-4.0cm)Aortic Cusp Exc1.7 (1.5-2.0cm) EF (%) 55.0 (55-70%)Rt. Atrium3.8 (1.9-4.0cm)Asc. Aorta cm Mitral Valve MitralMitral Stenosis E wave0.87m/sMV Mean GR.mmHg A wave0.99m/sMV Peak GR.mmHg E/A ratio0.92D MVAcm2 DECEL [id number] 1/2 [place] Aortic Valve Aortic ValveAortic Stenosis V11.11m/Shawna Mean GR.4mmHg V21.41m/Shawna Peak GR.8mmHg LVOT Diameter1.9 (1.8-2.4cm)Doppler AVA2.23cm2 Other Information Quality : LimitedRhythm : Technically limited study due to body habitus, patient sitting up. Conclusion Technically difficult study. Difficult acoustic windows. Aortic root enlargement. Mild aortic sclerosis. Tricuspid and pulmonic or structurally normal. The mitral is normal. Left ventricular function is preserved at 60% with normal RV function. Doppler reveals mild TR. No pericardial effusion masses or vegetations.
== END 2025-02-16 14:36 | disposition home or self-care (01) | DRG 64 ==
LOC: ER 13:40 → EEVIPCON 13:40 → OVERFLOW 19:40 → TELE-CENTR 23:38
PROVIDERS: ADMIT Internal Medicine Geriatric Medicine; ATTEND Internal Medicine Geriatric Medicine
DX: I63.9 Cerebral infarction, unspecified (principal); G93.41 Metabolic encephalopathy; I69.354 Hemiplegia and hemiparesis following cerebral infarction affecting left non-dominant side; N17.9 Acute kidney failure, unspecified; E11.9 Type 2 diabetes mellitus without complications; I10 Essential (primary) hypertension; E78.5 Hyperlipidemia, unspecified; R47.81 Slurred speech; I69.30 Unspecified sequelae of cerebral infarction; H54.7 Unspecified visual loss; Z79.01 Long term (current) use of anticoagulants; Z91.148 Patient's other noncompliance with medication regimen for other reason; I69.323 Fluency disorder following cerebral infarction; Z79.899 Other long term (current) drug therapy; M94.0 Chondrocostal junction syndrome [Tietze]; I16.0 Hypertensive urgency
CPT/HCPCS: 36415; 70450; 70551; 71045; 80048; 80053; 80061; 81001; 82962; 83735; 84484; 85025; 93005; 93306; 96374; 97110; 97116; 97163; 97530; 99291; G0378; J1815